=== PATIENT | female | born 1995 | race Caucasian/White ===

== ENCOUNTER 2020-02-24 17:27 | Emergency (ER) | payer BC, MEDICAID ==
[~2020-02-24] VITALS: Ht 157.5 cm; Wt 57.6 kg
[~2020-02-24 17:27] MED LIST: NAPR375T PO; acutane PO
--- NOTE | 2020-02-24 18:08 | NUR ---
patient to xray.
[2020-02-24] MEDS ORDERED: ibuprofen 200mg tablet PO ONE (18:25)
[2020-02-24] MEDS ORDERED: hydrocort. acetate/pramoxine 10gm bottle RC PRN (18:25)
[2020-02-24] MEDS ORDERED: acetaminophen 325mg tablet PO ONE (18:25)
[2020-02-24 20:19] VITALS: BP 120/69
== END 2020-02-24 20:48 | disposition home or self-care (01) ==
LOC: ER 17:28
DX: K59.00 Constipation, unspecified (principal); Z79.899 Other long term (current) drug therapy
CPT/HCPCS: 74018; 99283; 99284